=== PATIENT | female | born 1990 | race Caucasian/White ===

== ENCOUNTER 2020-09-03 23:34 | Inpatient (IN) | payer BC ==
[2020-09-03] MEDS ORDERED: Misoprostol 200 MCG Tab PO PRN (23:41)
[2020-09-03] MEDS ORDERED: Sodium Chloride 0.9% 10 ML Syringe FLUSH PRN (23:41)
[2020-09-03] MEDS ORDERED: Lidocaine 1% 50 ML MDV INJECT PRN (23:41)
[2020-09-03] MEDS ORDERED: Methylergonovine 0.2 MG/1 ML Amp IM PRN (23:41)
[2020-09-03] MEDS ORDERED: Butorphanol 1 MG/ML SDV IVPUSH PRN (23:41)
[2020-09-03] MEDS ORDERED: Sodium Chloride 0.9% 2.5 ML Syringe FLUSH PRN (23:41)
[2020-09-03] MEDS ORDERED: Ondansetron 4 MG/2 ML SDV IVPUSH PRN (23:41)
[2020-09-03] MEDS ORDERED: Water For Irrigation,Sterile 1,000 ML Container IRR PRN (23:41)
[2020-09-03] MEDS ORDERED: Tranexamic Acid 1,000 MG in Sodium Chloride 0.9% 100 ML IV PRN (23:41)
[2020-09-03] MEDS ORDERED: Carboprost Tromethamine 250 MCG/1 ML Amp IM PRN (23:41)
[2020-09-03] MEDS ORDERED: Sodium Chloride 0.9% 10 ML SDV IV PRN (23:41)
[2020-09-03] MEDS ORDERED: Oxytocin/0.9 % Sodium Chloride 30 UNIT/500 ML BAG IV SCH (23:45)
[2020-09-04] MEDS: Lactated Ringers 1,000 ML IV SCH ×3 (00:08→06:49)
[2020-09-04] MEDS ORDERED: Bupivacaine 0.25% 10 ML SDV ONE (04:01)
[2020-09-04] MEDS ORDERED: Ropivacaine HCl/PF 200 ML ONE (04:01)
--- NOTE | 2020-09-04 04:12 | PCM.LDHP ---
L&D History of Present Illness - General Date of Service: 09/04/20 Admit Problem/Dx: Patient Status Order with Admit Dx/Problem 09/03/20 23:42 Patient Status [ADT] Routine Admission Diagnosis/Problem Admission Diagnosis/Problem Planned Source of Information: Patient History Limitations: Reports: No Limitations - History of Present Illness Introduction:: 30 year old at 39w1d (EDC 09/10/2020 by LMP consistent with first trimester ultrasound) presented to labor and delivery on the evening of 09/03/2020 with spontaneous rupture of membranes and onset of labor. Stated ROM with clear fluid occurred at 2130 and her contractions started shortly thereafter. SVE upon arrival was 2-3/90/-1, vertex per nursing and she was noted to be grossly ruptured. has been complicated by chlamydial infection which was tr eated and resolved. Reports good movement. Denies vaginal bleeding. Pain Score: 6 - Related Data Allergies/Adverse Reactions: Allergies Allergy/AdvReac Type Severity Reaction Status Date / Time tioconazole Allergy Burning Verified 09/04/20 01:05 [From Monistat 1 (tioconazole)] Home Medications: Home Meds Acetaminophen [Tylenol] 650 mg PO Q4H PRN 09/04/20 [History] Doxylamine Succinate [Unisom] 1 tab PO DAILY 09/04/20 [History] Iron,Carbonyl/Ascorbic Acid [Iron 100-Vitamin C Tablet] 1 tab PO DAILY 09/04/20 [History] Magnesium Oxide/Magnesium [Magnesium] 1 cap PO DAILY 09/04/20 [History] Omeprazole Magnesium [Prilosec Otc] 1 tab PO DAILY 09/04/20 [History] Pnv No.95/Ferrous Fum/Folic AC [ Vitamin Tablet] 1 tab PO DAILY 09/04/20 [History] Past Medical History - Past Health History Medical/Surgical History: Denies 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 Respiratory: Reports: Other (See Below) Other Respiratory Family Hisory: FOB grandfather dx with pulmonary fibrosis at age 50. - Tobacco Use Tobacco Use Status *Q: Never Tobacco User Second Hand Smoke Exposure: No H&P Review of Systems - Review of Systems: Review Of Systems: See Below General: Reports: No Symptoms HEENT: Reports: No Symptoms Pulmonary: Reports: No Symptoms Cardiovascular: Reports: No Symptoms Gastrointestinal: Reports: Abdominal Pain Genitourinary: Reports: No Symptoms Musculoskeletal: Reports: Back Pain Skin: Reports: No Symptoms Psychiatric: Reports: No Symptoms Neurological: Reports: No Symptoms Hematologic/Lymphatic: Reports: No Symptoms Immunologic: Reports: No Symptoms L&D Exam - Exam Exam: See Below - Vital Signs Weight: 235 lb - OB Specific Contraction Intensity: Moderate Movement: Active Heart Tones: Present Heart Tones per Min: 150 Heart Rate (FHR) Variability: Moderate (6-25 bmp) Presentation: Vertex - Young Score Young Score Cervix Position: Midposition Young Score Consistency: Soft Young Score Effacement: >80% Young Score Dilation: 3-4 cm Young Score 's Station: -1 ,0 Young Score Total: 10 - Exam General: Alert Lungs: Normal Respiratory Effort Cardiovascular: Regular Rate GI/Abdominal Exam: Soft, Non-Tender Back Exam: Normal Inspection, Full Range of Motion Extremities: Normal Range of Motion, Non-Tender, Pedal Edema (trace) Skin: Warm, Dry, Intact Psychiatric: Normal Mood - Patient Data Lab Results Last 24 hrs: Laboratory Results - last 24 hr 09/03/20 09/03/20 09/03/20 Range/Units 23:26 23:57 23:57 WBC 7.48 (4.0-11.0) K/uL RBC 4.15 L (4.30-5.90) M/uL Hgb 12.5 (12.0-16.0) g/dL Hct 36.5 (36.0-46.0) % MCV 88.0 (80.0-98.0) fL MCH 30.1 (27.0-32.0) pg MCHC 34.2 (31.0-37.0) g/dL RDW Std Deviation 41.6 (28.0-62.0) fl RDW Coeff of Zeke 13 (11.0-15.0) % Plt Count 238 (150-400) K/uL MPV 10.00 (7.40-12.00) fL Nucleated RBC % 0.0 /100WBC Nucleated RBCs # 0 K/uL SARS-CoV-2 RNA (ANNE) NEGATIVE (NEGATIVE) Blood Type AB POSITIVE Antibody Screen NEGATIVE Result Diagrams: 09/03/20 23:57 Problem List Initiated/Reviewed/Updated: Yes Orders Last 24hrs: Active Orders 24 hr Category Date Time Status Patient Status [ADT] Routine ADT 09/03/20 23:42 Active Heart Tones [RC] CONTINUOUS Care 09/03/20 23:42 Active Non Stress Test [RC] PER UNIT ROUTINE Care 09/03/20 23:42 Active May Shower [RC] ASDIRECTED Care 09/03/20 23:42 Active Notify Provider [RC] PRN Care 09/03/20 23:42 Active Up ad Kena [RC] ASDIRECTED Care 09/03/20 23:42 Active Vaginal Exam [RC] PRN Care 09/03/20 23:42 Active Vital Signs [RC] PER UNIT ROUTINE Care 09/03/20 23:42 Active RPR (SYPHILIS SERO) W/ RFLX [REF] Routine Lab 09/03/20 23:57 Received Butorphanol [Stadol] Med 09/03/20 23:41 Active 1 mg IVPUSH Q1H PRN Carboprost Tromethamine [Hemabate DS] Med 09/03/20 23:41 Active 250 mcg IM ASDIRECTED PRN Lactated Ringers [Ringers, Lactated] 1,000 ml Med 09/03/20 23:45 Active IV ASDIRECTED Lidocaine 1% [Xylocaine 1%] Med 09/03/20 23:41 Active 50 ml INJECT ONETIME PRN Methylergonovine [Methergine] Med 09/03/20 23:41 Active 0.2 mg IM ASDIRECTED PRN Ondansetron [Zofran] Med 09/03/20 23:41 Active 4 mg IVPUSH Q6H PRN Oxytocin/0.9 % Sodium Chloride [Oxytocin 30 Unit/500 ML Med 09/03/20 23:45 Active -NS] 30 unit in 500 ml IV TITRATE Sodium Chloride 0.9% [Normal Saline] Med 09/03/20 23:41 Active 10 ml IV ASDIRECTED PRN Sodium Chloride 0.9% [Saline Flush] Med 09/03/20 23:41 Active 10 ml FLUSH ASDIRECTED PRN Sodium Chloride 0.9% [Saline Flush] Med 09/03/20 23:41 Active 2.5 ml FLUSH ASDIRECTED PRN Tranexamic Acid [Cyklokapron] 1,000 mg Med 09/03/20 23:41 Active Sodium Chloride 0.9% [Normal Saline] 100 ml IV ONETIME Water For Irrigation,Sterile [Sterile Water for Med 09/03/20 23:41 Active Irrigation] 1,000 ml IRR ASDIRECTED PRN miSOPROStoL [Cytotec] Med 09/03/20 23:41 Active 200 mcg PO ONETIME PRN Scalp Electrode [WOMSER] Per Unit Routine Oth 09/03/20 23:42 Ordered Peripheral IV Insertion Adult [OM.PC] Routine Oth 09/03/20 23:42 Ordered Resuscitation Status Routine Resus Stat 09/03/20 23:41 Ordered Medication Orders Butorphanol Tartrate (Butorphanol 1 Mg/Ml Sdv) 1 mg IVPUSH Q1H PRN PRN Reason: Pain (severe 7-10) Last Admin: 09/04/20 01:55 Dose: 1 mg Documented by: LEO Carboprost Tromethamine (Carboprost Tromethamine 250 Mcg/1 Ml Amp) 250 mcg IM A SDIRECTED PRN PRN Reason: Post Hemorrhage Oxytocin/Sodium Chloride (Oxytocin 30 Unit/500 Ml-Ns) 30 unit in 500 mls @ 500 mls/hr IV TITRATE [facility] Tranexamic Acid 1,000 mg/ (Sodium Chloride) 110 mls @ 660 mls/hr IV ONETIME PRN PRN Reason: Bleeding Lactated Ringer's (Ringers, Lactated) 1,000 mls @ 150 mls/hr IV ASDIRECTED COLLEEN Last Infusion: 09/04/20 01:15 Dose: 150 mls/hr Documented by: Admin: 09/04/20 00:08 Dose: 500 mls/hr Documented by: LEO Lidocaine HCl (Lidocaine 1% 50 Ml Mdv) 50 ml INJECT ONETIME PRN PRN Reason: Laceration repair Methylergonovine Maleate (Methylergonovine 0.2 Mg/1 Ml Amp) 0.2 mg IM ASDIRECTED PRN PRN Reason: Post Hemorrhage Misoprostol (Misoprostol 200 Mcg Tab) 200 mcg PO ONETIME PRN PRN Reason: Post Hemorrhage Ondansetron HCl (Ondansetron 4 Mg/2 Ml Sdv) 4 mg IVPUSH Q6H PRN PRN Reason: Nausea/Vomiting Sodium Chloride (Sodium Chloride 0.9% 10 Ml Syringe) 10 ml FLUSH ASDIRECTED PRN PRN Reason: Keep Vein Open Sodium Chloride (Sodium Chloride 0.9% 2.5 Ml Syringe) 2.5 ml FLUSH ASDIRECTED PRN PRN Reason: Keep Vein Open Sodium Chloride (Sodium Chloride 0.9% 10 Ml Sdv) 10 ml IV ASDIRECTED PRN PRN Reason: IV Use Sterile Water (Water For Irrigation,Sterile 1,000 Ml Container) 1,000 ml IRR ASDIRECTED PRN PRN Reason: delivery Assessment/Plan Comment:: 30 year old at 39w1d (EDC 09/10/2020 by LMP consistent with first trimester ultrasound) with spontaneous rupture of membranes * Admit to labor and delivery * Rh positive, rubella immune, GBS negative * Epidural PRN pain management * Clear liquids as tolerated Dispo: stable. Continue with expectant management of labor.
[2020-09-04] MEDS ORDERED: ePHEDrine 50 MG/ML SDV ONE (04:36)
--- NOTE | 2020-09-04 04:51 | PCM.PREANE ---
Preanesthetic Assessment - Anesthesia/Transfusion/Family Hx Anesthesia History: No Prior Anesthesia Family History of Anesthesia Reaction: No Transfusion History: No Prior Transfusion(s) - Review of Systems General: No Symptoms Pulmonary: No Symptoms Cardiovascular: No Symptoms Gastrointestinal: No Symptoms Neurological: No Symptoms Other: Reports: None - Physical Assessment Height: 5 ft 6 in Weight: 235 lb ASA Class: 2 Mental Status: Alert & Oriented x3 Airway Class: Mallampati = 3 Dentition: Reports: Normal Dentition ROM/Head Extension: Full Lungs: Clear to Auscultation, Normal Respiratory Effort Cardiovascular: Regular Rate, Regular Rhythm - Lab Values: Laboratory Last Values WBC 7.48 K/uL (4.0-11.0) 09/03/20 23:57 RBC 4.15 M/uL (4.30-5.90) L 09/03/20 23:57 Hgb 12.5 g/dL (12.0-16.0) 09/03/20 23:57 Hct 36.5 % (36.0-46.0) 09/03/20 23:57 MCV 88.0 fL (80.0-98.0) 09/03/20 23:57 MCH 30.1 pg (27.0-32.0) 09/03/20 23:57 MCHC 34.2 g/dL (31.0-37.0) 09/03/20 23:57 RDW Std Deviation 41.6 fl (28.0-62.0) 09/03/20 23:57 RDW Coeff of Zeke 13 % (11.0-15.0) 09/03/20 23:57 Plt Count 238 K/uL (150-400) 09/03/20 23:57 MPV 10.00 fL (7.40-12.00) 09/03/20 23:57 Nucleated RBC % 0.0 /100WBC 09/03/20 23:57 Nucleated RBCs # 0 K/uL 09/03/20 23:57 SARS-CoV-2 RNA (ANNE) NEGATIVE (NEGATIVE) 09/03/20 23:26 Blood Type AB POSITIVE 09/03/20 23:57 Antibody Screen NEGATIVE 09/03/20 23:57 - Allergies Allergies/Adverse Reactions: Allergies Allergy/AdvReac Type Severity Reaction Status Date / Time tioconazole Allergy Burning Verified 09/04/20 01:05 [From Monistat 1 (tioconazole)] - Blood Blood Available: Yes Product(s) Available: PRBC - Anesthesia Plan Pre-Op Medication Ordered: None - Acknowledgements Anesthesia Type Planned: Epidural Pt an Appropriate Candidate for the Planned Anesthesia: Yes Alternatives and Risks of Anesthesia Discussed w Pt/Guardian: Yes Pt/Guardian Understands and Agrees with Anesthesia Plan: Yes PreAnesthesia Questionnaire - Past Health History Medical/Surgical History: Denies 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: - Infectious Disease History Infectious Disease History: Reports: Chicken Pox - SUBSTANCE USE Tobacco Use Status *Q: Never Tobacco User Second Hand Smoke Exposure: No - HOME MEDS Home Medications: Home Meds Acetaminophen [Tylenol] 650 mg PO Q4H PRN 09/04/20 [History] Doxylamine Succinate [Unisom] 1 tab PO DAILY 09/04/20 [History] Iron,Carbonyl/Ascorbic Acid [Iron 100-Vitamin C Tablet] 1 tab PO DAILY 09/04/20 [History] Magnesium Oxide/Magnesium [Magnesium] 1 cap PO DAILY 09/04/20 [History] Omeprazole Magnesium [Prilosec Otc] 1 tab PO DAILY 09/04/20 [History] Pnv No.95/Ferrous Fum/Folic AC [ Vitamin Tablet] 1 tab PO DAILY 09/04/20 [History] - CURRENT (IN HOUSE) MEDS Current Meds: Current Medications Butorphanol Tartrate (Butorphanol 1 Mg/Ml Sdv) 1 mg IVPUSH Q1H PRN PRN Reason: Pain (severe 7-10) Last Admin: 09/04/20 01:55 Dose: 1 mg Documented by: Carboprost Tromethamine (Carboprost Tromethamine 250 Mcg/1 Ml Amp) 250 mcg IM ASDIRECTED PRN PRN Reason: Post Hemorrhage Oxytocin/Sodium Chloride (Oxytocin 30 Unit/500 Ml-Ns) 30 unit in 500 mls @ 500 mls/hr IV TITRATE COLLEEN Tranexamic Acid 1,000 mg/ (Sodium Chloride) 110 mls @ 660 mls/hr IV ONETIME PRN PRN Reason: Bleeding Lactated Ringer's (Ringers, Lactated) 1,000 mls @ 150 mls/hr IV ASDIRECTED COLLEEN Last Admin: 09/04/20 04:22 Dose: 999 mls/hr Documented by: Lidocaine HCl (Lidocaine 1% 50 Ml Mdv) 50 ml INJECT ONETIME PRN PRN Reason: Laceration repair Methylergonovine Maleate (Methylergonovine 0.2 Mg/1 Ml Amp) 0.2 mg IM ASDIRECTED PRN PRN Reason: Post Hemorrhage Misoprostol (Misoprostol 200 Mcg Tab) 200 mcg PO ONETIME PRN PRN Reason: Post Hemorrhage Ondansetron HCl (Ondansetron 4 Mg/2 Ml Sdv) 4 mg IVPUSH Q6H PRN PRN Reason: Nausea/Vomiting Sodium Chloride (Sodium Chloride 0.9% 10 Ml Syringe) 10 ml FLUSH ASDIRECTED PRN PRN Reason: Keep Vein Open Sodium Chloride (Sodium Chloride 0.9% 2.5 Ml Syringe) 2.5 ml FLUSH ASDIRECTED PRN PRN Reason: Keep Vein Open Sodium Chloride (Sodium Chloride 0.9% 10 Ml Sdv) 10 ml IV ASDIRECTED PRN PRN Reason: IV Use Sterile Water (Water For Irrigation,Sterile 1,000 Ml Container) 1,000 ml IRR ASDIRECTED PRN PRN Reason: delivery Discontinued Medications Bupivacaine HCl (Bupivacaine 0.25% 10 Ml Sdv) Confirm Administered Dose 10 ml .ROUTE .STK-MED ONE Stop: 09/04/20 04:02 Ephedrine Sulfate (Ephedrine 50 Mg/Ml Sdv) Confirm Administered Dose 50 mg .ROUTE .STK-MED ONE Stop: 09/04/20 04:37 Ropivacaine (Naropin 0.2%) Confirm Administered Dose 200 mls @ as directed .ROUTE .STK-MED ONE Stop: 09/04/20 04:02 - Pre-Procedure Checklist Attending Provider Aware: Yes Chart Reviewed: Yes Consent Signed: Yes Labs Reviewed: Yes VS/FHR Reviewed: Yes Patient Identification Confirmation Method: Reports: Verbal Patient Pt an Appropriate Candidate for the Planned Anesthesia: Yes Alternatives and Risks of Anesthesia Discussed w Pt/Guardian: Yes - Procedure Procedure Start Date: 09/04/20 Procedure Start Time: 04:[address]: Reports: Blood Pressure, Heart Rate, SPO2 Functional IV: Yes Safety Measures: Reports: Patient Identified, Procedure Verified, Site Verified, Procedure Time Out Patient Position: Reports: Sitting Prep: Reports: Betadine x3, Sterile Drape Local Anesthetic: Reports: Intradermal Wheal w Lidocaine 1% Regional Placement Level: Reports: L3-4 Needle: Reports: 17 g Touhy Approach: Reports: Midline Technique: Reports: CATRINA Plastic Syringe Parasthesia: Reports: None Fluid Obtained: Reports: None Test Dose Time: 04:12 Test Dose Medication: Reports: Lidocaine 1.5% w Epinephrine 1:200,000 Test Dose Response: Reports: Negative Loading Dose Time: 04:10 Loading Dose Medication: bupivicaine 0.25% 10 cc Loading Dose Patient Position: sitting Continuous Infusion Start Time: 04:15 Continuous Infusion Medication: ropivicaine 0.2% Continuous Infusion Rate: 16 Continuous Infusion PCS Bolus Option: 4 Continuous Infusion Lockout Dose (cc/hr): 20 Patient Position Post Placement: Reports: Supline/VINITA VS and FHR Monitored in Unit Post Placement: Yes Procedure End Date: 09/04/20 Procedure End Time: 05:06
[2020-09-04] MEDS ORDERED: Benzocaine/Menthol 20%-0.5% Spray 78 GM Cannister TOP PRN (10:53)
[2020-09-04] MEDS ORDERED: Acetaminophen 500 MG Tab PO PRN (10:53)
[2020-09-04] MEDS ORDERED: Ibuprofen 400 MG Tab PO PRN (10:53)
[2020-09-04] MEDS ORDERED: Docusate Sodium 100 MG Cap PO PRN (10:53)
[2020-09-04] MEDS ORDERED: Lanolin 100% Cream 7 GM Tube TOP PRN (10:53)
[2020-09-04] MEDS ORDERED: Bisacodyl 10 MG Supp RECTAL PRN (10:53)
[2020-09-04] MEDS ORDERED: oxyCODONE 5 MG Tab PO PRN (10:53)
[2020-09-04] MEDS ORDERED: Witch Hazel Medicated Pads 40/Jar TOP PRN (10:53)
--- NOTE | 2020-09-04 11:00 | PCM.DEL ---
L & D Note - General Info Date of Service: 09/04/20 - Delivery Note Labor: Spontaneous Delivery Outcome: Livebirth Delivery Method: Spontaneous Vaginal Delivery-Single Presentation: Right Occiput Anterior (GABRIEL) Nuchal Cord: Present Anesthesia Type: Epidural Anesthetic: Lidocaine (Xylocaine) 1% Plain Local Anesthetic Volume: Other (15cc) Amniotic Fluid Description: Clear Episiotomy Type: None Laceration: 2nd Degree Suture type: Vicryl Suture size: 3-0 Placenta: Spontaneous Cord: 3 Vessels Estimated Blood Loss: 300 Resuscitation Needed: No : Bulb Syringe Provider: Edwin Pleitez Score 1 min: 8 Score 5 min: 9 Second Stage Interventions: Reports: Pushing Effectively - General Info Date of Service: 09/04/20 - Patient Data Weight - Most Recent: 235 lb I&O - Last 24 Hours: Intake & Output 09/03/20 09/04/20 09/04/20 22:59 06:59 14:59 Intake Total 1999 Balance 1999 Lab Results Last 24 Hours: Laboratory Results - last 24 hr 09/03/20 09/03/20 09/03/20 Range/Units 23:26 23:57 23:57 WBC 7.48 (4.0-11.0) K/uL RBC 4.15 L (4.30-5.90) M/uL Hgb 12.5 (12.0-16.0) g/dL Hct 36.5 (36.0-46.0) % MCV 88.0 (80.0-98.0) fL MCH 30.1 (27.0-32.0) pg MCHC 34.2 (31.0-37.0) g/dL RDW Std Deviation 41.6 (28.0-62.0) fl RDW Coeff of Zeke 13 (11.0-15.0) % Plt Count 238 (150-400) K/uL MPV 10.00 (7.40-12.00) fL Nucleated RBC % 0.0 /100WBC Nucleated RBCs # 0 K/uL SARS-CoV-2 RNA (ANNE) NEGATIVE (NEGATIVE) Blood Type AB POSITIVE Antibody Screen NEGATIVE Med Orders - Current: Current Medications Butorphanol Tartrate (Butorphanol 1 Mg/Ml Sdv) 1 mg IVPUSH Q1H PRN PRN Reason: Pain (severe 7-10) Last Admin: 09/04/20 01:55 Dose: 1 mg Documented by: Carboprost Tromethamine (Carboprost Tromethamine 250 Mcg/1 Ml Amp) 250 mcg IM ASDIRECTED PRN PRN Reason: Post Hemorrhage Oxytocin/Sodium Chloride (Oxytocin 30 Unit/500 Ml-Ns) 30 unit in 500 mls @ 500 mls/hr IV TITRATE [facility] Last Admin: 09/04/20 10:30 Dose: 500 mls/hr Documented by: Tranexamic Acid 1,000 mg/ (Sodium Chloride) 110 mls @ 660 mls/hr IV ONETIME PRN PRN Reason: Bleeding Lactated Ringer's (Ringers, Lactated) 1,000 mls @ 150 mls/hr IV ASDIRECTED [facility] Last Admin: 09/04/20 06:49 Dose: 150 mls/hr Documented by: Lidocaine HCl (Lidocaine 1% 50 Ml Mdv) 50 ml INJECT ONETIME PRN PRN Reason: Laceration repair Last Admin: 09/04/20 10:30 Dose: 50 ml Documented by: Methylergonovine Maleate (Methylergonovine 0.2 Mg/1 Ml Amp) 0.2 mg IM ASDIRECTED PRN PRN Reason: Post Hemorrhage Misoprostol (Misoprostol 200 Mcg Tab) 200 mcg PO ONETIME PRN PRN Reason: Post Hemorrhage Ondansetron HCl (Ondansetron 4 Mg/2 Ml Sdv) 4 mg IVPUSH Q6H PRN PRN Reason: Nausea/Vomiting Sodium Chloride (Sodium Chloride 0.9% 10 Ml Syringe) 10 ml FLUSH ASDIRECTED PRN PRN Reason: Keep Vein Open Sodium Chloride (Sodium Chloride 0.9% 2.5 Ml Syringe) 2.5 ml FLUSH ASDIRECTED PRN PRN Reason: Keep Vein Open Sodium Chloride (Sodium Chloride 0.9% 10 Ml Sdv) 10 ml IV ASDIRECTED PRN PRN Reason: IV Use Sterile Water (Water For Irrigation,Sterile 1,000 Ml Container) 1,000 ml IRR ASDIRECTED PRN PRN Reason: delivery Discontinued Medications Bupivacaine HCl (Bupivacaine 0.25% 10 Ml Sdv) Confirm Administered Dose 10 ml .ROUTE .ST-MED ONE Stop: 09/04/20 04:02 Ephedrine Sulfate (Ephedrine 50 Mg/Ml Sdv) Confirm Administered Dose 50 mg .ROUTE .STK-MED ONE Stop: 09/04/20 04:37 Ropivacaine (Naropin 0.2%) Confirm Administered Dose 200 mls @ as directed .ROUTE .STK-MED ONE Stop: 09/04/20 04:02 - Exam Urinary Catheter Total Time: 0Days 0Hours - Problem List Review Problem List Initiated/Reviewed/Updated: Yes - Assessment Assessment:: 30 year old day 0 s/p . - Plan Plan:: Routine care
[2020-09-04] MEDS: Ibuprofen 800 MG Tab PO PRN ×2 (11:53→19:35)
--- NOTE | 2020-09-04 14:42 | OR ---
SURGEON: Edwin Pleitez MD DATE OF PROCEDURE: 09/04/2020 INDICATION FOR PROCEDURE: A 30-year-old, G1, P0, at 39 weeks and 1 day, presenting with spontaneous rupture of membranes in labor. The patient noticed a gush of fluid last night around 11:30 p.m., then started having contractions on her own. After she arrived to Labor and Delivery, she was confirmed to be ruptured and cervix was 2-3cm/ 90%/-1. She is GBS negative. She had otherwise uncomplicated . The baby is category 1 tracing. She continued to make cervical change on her own. She received an epidural with good pain control. She progressed to fully dilated with the urge to push. PREOPERATIVE DIAGNOSIS: 1. Schmitz intrauterine at 39 weeks and 1 day. 2. Active labor POSTOPERATIVE DIAGNOSIS: 1. Schmitz intrauterine at 39 weeks and 1 day. 2. Active labor PROCEDURE PERFORMED: Normal spontaneous vaginal delivery, repair of second-degree laceration. Geodetic Survey Director: Arely Pineda MS4 ANESTHESIOLOGIST: Dr. Jason Menjivar. ANESTHESIA: Epidural. FINDINGS: Viable female . scores of 8 and 9. weight of 7lb 3oz. Nuchal cord x1 was noted and reduced after delivery. ESTIMATED BLOOD LOSS: 200 mL. DESCRIPTION OF PROCEDURE: The patient pushed with contractions for about 30 minutes with good descent. head delivered in occiput anterior position over intact perineum, restituted ROT. Nuchal cord was noted. Anterior shoulder delivered easily followed by posterior shoulder and remaining body. Nuchal cord was reduced after delivery. The baby was placed on maternal chest and evaluated by awaiting nursery staff. The baby was pink, crying, and moving all extremities immediately after delivery. The umbilical cord was clamped and cut after 3 minutes, and umbilical cord gases were obtained. The placenta was removed with gentle traction on the umbilical cord and fundal massage. It was examined to be intact with 3-vessel cord. The perineum was examined. She had a second-degree laceration. 15 mL of 1% lidocaine was injected for anesthesia. The laceration was repaired with 3-0 Vicryl in usual fashion. Hemostasis was confirmed after the repair. Fundal massage was performed and the bleeding was light. The patient tolerated the procedure well and was given care instructions. GIANNI / CHRISTINA /[id number] MTDMaria Fernanda
[2020-09-04] MEDS: Acetaminophen 500 MG Tab PO PRN (15:26)
[2020-09-05] MEDS: Acetaminophen 500 MG Tab PO PRN (00:50)
[2020-09-05] MEDS: Ibuprofen 800 MG Tab PO PRN (06:09)
--- NOTE | 2020-09-05 08:50 | PCM.PNPP ---
- General Info Date of Service: 09/05/20 Functional Status: Reports: Pain Controlled, Tolerating Diet, Ambulating, Urinating - Review of Systems General: Reports: No Symptoms HEENT: Reports: No Symptoms Pulmonary: Reports: No Symptoms Cardiovascular: Reports: No Symptoms Gastrointestinal: Reports: No Symptoms Genitourinary: Reports: No Symptoms Musculoskeletal: Reports: No Symptoms Skin: Reports: No Symptoms Neurological: Reports: No Symptoms Psychiatric: Reports: No Symptoms - General Info Date of Service: 09/05/20 - Patient Data Vital Signs - Most Recent: Last Vital Signs Temp 98.5 F 09/04/20 19:00 Pulse 110 H 09/04/20 19:00 Resp 18 09/04/20 19:00 BP 124/71 09/04/20 19:00 Pulse Ox 96 09/04/20 19:00 Weight - Most Recent: 235 lb Lab Results - Last 24 Hours: Laboratory Results - last 24 hr 09/05/20 Range/Units 06:29 Hgb 11.5 L (12.0-16.0) g/dL Hct 33.5 L (36.0-46.0) % Med Orders - Current: Current Medications Acetaminophen (Acetaminophen 500 Mg Tab) 500 mg PO Q4H PRN PRN Reason: Pain (mild 1-3) Acetaminophen (Acetaminophen 500 Mg Tab) 1,000 mg PO Q4H PRN PRN Reason: Pain (mild 1-3) Last Admin: 09/05/20 00:50 Dose: 1,000 mg Documented by: Benzocaine/Menthol (Benzocaine/Menthol 20%-0.5% [place] 78 Gm Cannister) 78 gm TOP ASDIRECTED PRN PRN Reason: Perineal Comfort Measure Bisacodyl (Bisacodyl 10 Mg Supp) 10 mg RECTAL ONETIME PRN PRN Reason: Constipation Butorphanol Tartrate (Butorphanol 1 Mg/Ml Sdv) 1 mg IVPUSH Q1H PRN PRN Reason: Pain (severe 7-10) Last Admin: 09/04/20 01:55 Dose: 1 mg Documented by: Carboprost Tromethamine (Carboprost Tromethamine 250 Mcg/1 Ml Amp) 250 mcg IM ASDIRECTED PRN PRN Reason: Post Hemorrhage Docusate Sodium (Docusate Sodium 100 Mg Cap) 100 mg PO Q12H PRN PRN Reason: Constipation Last Admin: 09/04/20 15:26 Dose: 100 mg Documented by: Emollient Ointment (Lanolin 100% Cream 7 Gm Tube) 0 gm TOP ASDIRECTED PRN PRN Reason: Sore Nipples Last Admin: 09/04/20 15:26 Dose: 1 tube Documented by: Oxytocin/Sodium Chloride (Oxytocin 30 Unit/500 Ml-Ns) 30 unit in 500 mls @ 500 mls/hr IV TITRATE [facility] Last Admin: 09/04/20 10:30 Dose: 500 mls/hr Documented by: Tranexamic Acid 1,000 mg/ (Sodium Chloride) 110 mls @ 660 mls/hr IV ONETIME PRN PRN Reason: Bleeding Lactated Ringer's (Ringers, Lactated) 1,000 mls @ 150 mls/hr IV ASDIRECTED [facility] Last Admin: 09/04/20 06:49 Dose: 150 mls/hr Documented by: Ibuprofen (Ibuprofen 400 Mg Tab) 400 mg PO Q4H PRN PRN Reason: Pain (mild 1-3) Ibuprofen (Ibuprofen 800 Mg Tab) 800 mg PO Q6H PRN PRN Reason: Pain (mild 1-3) Last Admin: 09/05/20 06:09 Dose: 800 mg Documented by: Lidocaine HCl (Lidocaine 1% 50 Ml Mdv) 50 ml INJECT ONETIME PRN PRN Reason: Laceration repair Last Admin: 09/04/20 10:30 Dose: 50 ml Documented by: Methylergonovine Maleate (Methylergonovine 0.2 Mg/1 Ml Amp) 0.2 mg IM ASDIRECTED PRN PRN Reason: Post Hemorrhage Misoprostol (Misoprostol 200 Mcg Tab) 200 mcg PO ONETIME PRN PRN Reason: Post Hemorrhage Ondansetron HCl (Ondansetron 4 Mg/2 Ml Sdv) 4 mg IVPUSH Q6H PRN PRN Reason: Nausea/Vomiting Oxycodone HCl (Oxycodone 5 Mg Tab) 5 mg PO Q2H PRN PRN Reason: Pain (severe 7-10) Sodium Chloride (Sodium Chloride 0.9% 10 Ml Syringe) 10 ml FLUSH ASDIRECTED PRN PRN Reason: Keep Vein Open Sodium Chloride (Sodium Chloride 0.9% 2.5 Ml Syringe) 2.5 ml FLUSH ASDIRECTED PRN PRN Reason: Keep Vein Open Sodium Chloride (Sodium Chloride 0.9% 10 Ml Sdv) 10 ml IV ASDIRECTED PRN PRN Reason: IV Use Sterile Water (Water For Irrigation,Sterile 1,000 Ml Container) 1,000 ml IRR ASDIRECTED PRN PRN Reason: delivery Witch Shira (Witch Shira Medicated Pads 40/Jar) 1 pad TOP ASDIRECTED PRN PRN Reason: comfort care Discontinued Medications Bupivacaine HCl (Bupivacaine 0.25% 10 Ml Sdv) Confirm Administered Dose 10 ml .ROUTE .STK-MED ONE Stop: 09/04/20 04:02 Last Admin: 09/04/20 23:12 Dose: Not Given Documented by: Ephedrine Sulfate (Ephedrine 50 Mg/Ml Sdv) Confirm Administered Dose 50 mg .ROUTE .STK-MED ONE Stop: 09/04/20 04:37 Ropivacaine (Naropin 0.2%) Confirm Administered Dose 200 mls @ as directed .ROUTE .ST[place]-MED ONE Stop: 09/04/20 04:02 Last Admin: 09/04/20 23:12 Dose: Not Given Documented by: - Infant Interaction Infant Disposition, : at Bedside Interaction: Holding Infant Feeding: Breastfed Infant; Nursed Well Support Person: - Recovery Exam Fundal Tone: Firm Fundal Level: 2 Fingerbreadths Below Umbilicus Fundal Placement: Midline Lochia Amount: Scant Lochia Color: Rubra/Red Perineum Description: Other (see below) Other Perinuem Description: 2nd degree laceration Episiotomy/Laceration: Approximated Bladder Status: Voiding - Exam General: Alert, Oriented, Cooperative, No Acute Distress HEENT: Pupils Equal, Pupils Reactive Neck: Supple, Trachea Midline Lungs: Normal Respiratory Effort GI/Abdominal Exam: Soft, No Distention Extremities: Normal Inspection Skin: Warm, Dry, Intact Wound/Incisions: Healing Well Neurological: No New Focal Deficit Psy/Mental Status: Alert, Normal Affect, Normal Mood - Problem List Review Problem List Initiated/Reviewed/Updated: Yes - Assessment Assessment:: 30 year old day 1 s/p . Stable and recovering well. - Plan Plan:: Routine care. Plan for discharge today. * Ambulating well * * Light bleeding present, continue to monitor * Hemoglobin level 11.5 this morning * Continue to take vitamin and iron supplement * Follow up appointment in 4 weeks * Refer to discharge instructions with any further questions
== END 2020-09-05 13:37 | disposition home or self-care (01) | DRG 560 ==
LOC: MW.OBCHECK 23:34 → MW.OB 23:34 → MW.OBCHECK 23:42 → OBSVTOIN 09-04 10:53 → MW.OB 09-04 14:39
PROVIDERS: ADMIT Obstetrics & Gynecology; ATTEND Obstetrics & Gynecology
PROC: 10E0XZZ Delivery of Products of Conception, External Approach (ICD-10-PCS; principal; 2020-09-04)
PROC: 0KQM0ZZ Repair Perineum Muscle, Open Approach (ICD-10-PCS; 2020-09-04)
PROC: 3E0R3BZ Introduction of Anesthetic Agent into Spinal Canal, Percutaneous Approach (ICD-10-PCS; 2020-09-04)
PROC: 00HU33Z Insertion of Infusion Device into Spinal Canal, Percutaneous Approach (ICD-10-PCS; 2020-09-04)
DX: O69.81X0 Labor and delivery complicated by cord around neck, without compression, not applicable or unspecified (principal); O70.1 Second degree perineal laceration during delivery; Z37.0 Single live birth; Z3A.39 39 weeks gestation of pregnancy; Z20.822 Contact with and (suspected) exposure to COVID-19
CPT/HCPCS: 01967; 36415; 51702; 59020; 59025; 59409; 85014; 85018; 85027; 86592; 86850; 86900; 86901; A9270-GY; J0595; J2001; J2590; J2795; J3490; J7120; U0002

== ENCOUNTER 2023-10-22 07:05 | Inpatient (IN) | payer MEDICAID ==
[2023-10-22] MEDS ORDERED: Sodium Chloride 0.9% 20 ML SDV IV PRN (07:57)
[2023-10-22] MEDS ORDERED: Terbutaline 1 MG/ML SDV SUBCUT PRN (07:57)
[2023-10-22] MEDS ORDERED: Sodium Chloride 0.9% 2.5 ML Syringe FLUSH PRN (07:57)
[2023-10-22] MEDS ORDERED: Ondansetron 4 MG/2 ML SDV IVPUSH PRN (07:57)
[2023-10-22] MEDS ORDERED: Lidocaine 1% 50 ML MDV INJECT PRN (07:57)
[2023-10-22] MEDS ORDERED: Carboprost Tromethamine 250 MCG/1 mL Vial IM PRN (07:57)
[2023-10-22] MEDS ORDERED: Tranexamic Acid IN NACL,ISO-OS 1,000 MG in Premix Bag 1 BAG IV PRN (07:57)
[2023-10-22] MEDS ORDERED: Butorphanol 2 MG/ML SDV IVPUSH PRN (07:57)
[2023-10-22] MEDS ORDERED: Water For Irrigation,Sterile 1,000 ML Container IRR PRN (07:57)
[2023-10-22] MEDS ORDERED: Methylergonovine 0.2 MG/1 ML Amp IM PRN (07:57)
[2023-10-22] MEDS ORDERED: Misoprostol 200 MCG Tab PO PRN (07:57)
[2023-10-22] MEDS ORDERED: Sodium Chloride 0.9% 10 ML Syringe FLUSH PRN (07:57)
[2023-10-22] MEDS ORDERED: Oxytocin/0.9 % Sodium Chloride 30 UNIT/500 ML BAG IV SCH (08:00)
[2023-10-22] MEDS: Oxytocin/0.9 % Sodium Chloride 30 UNIT/500 ML BAG IV SCH (08:24)
[2023-10-22] MEDS: Lactated Ringers 1,000 ML IV SCH (08:24)
[2023-10-22 08:47] LABS: HEMOGLOBIN 11.5 g/dL (12.0-16.0); MEAN CORPUSCULAR HEMOGLOBIN 28.8 pg (28.0-32.0); MEAN CORPUSCULAR HGB CONC 33.8 g/dL (32.0-36.0); MEAN CORPUSCULAR VOLUME 85.2 fL (83.0-99.0); MEAN PLATELET VOLUME 9.6 fL (9.4-12.3); PLATELET COUNT,PLT 265 K/uL (150-400); RED BLOOD CELL COUNT 3.99 M/uL (4.10-5.30)
[2023-10-22] MEDS ORDERED: Ropivacaine HCl/PF 200 ML ONE (15:30)
[2023-10-22] MEDS ORDERED: Phenylephrine HCl In 0.9% NaCl 1 MG/10 ML Syringe ONE (15:30)
[2023-10-22] MEDS ORDERED: Bupivacaine 0.5% 10 ML SDV ONE (15:30)
[2023-10-22] MEDS: Ropivacaine HCl/PF 400 MG in Premix Bag 1 BAG EPIDUR SCH (16:00)
[2023-10-22] MEDS ORDERED: Phenylephrine HCl In 0.9% NaCl 1 MG/10 ML Syringe IVPUSH PRN (16:12)
[2023-10-22] MEDS ORDERED: ePHEDrine 50 MG/ML SDV IVPUSH PRN (16:12)
[2023-10-22] MEDS ORDERED: ePHEDrine 50 MG/ML SDV IM PRN (16:13)
[2023-10-22] MEDS ORDERED: Bupivacaine 0.5% 10 ML SDV INJECT ONE (16:13)
[2023-10-22] MEDS ORDERED: dexmedeTOMIDine HCl 200 MCG/2 ML SDV EPIDUR SCH (16:15)
[2023-10-22] MEDS ORDERED: Sennosides 8.6 MG Tab PO PRN (20:00)
[2023-10-22] MEDS ORDERED: Aluminum Hydroxide/Magnesium Hydroxide/Simethicone Susp 30 ML Cup PO PRN (20:00)
[2023-10-22 20:35] LABS: PH,UMBILICAL ARTERIAL 7.304 (7.18-7.38); PH,UMBILICAL VENOUS 7.342 (7.25-7.45)
[2023-10-22] MEDS: Ibuprofen 800 MG Tab PO PRN (22:33)
[2023-10-22] MEDS: Benzocaine/Menthol 20%-0.5% Spray 78 GM Cannister TOP PRN (22:34)
[2023-10-22] MEDS: Witch Hazel Medicated Pads 40/Jar TOP PRN (22:35)
[2023-10-23] MEDS: Acetaminophen 500 MG Tab PO PRN (01:36)
[2023-10-23] MEDS: Famotidine 20 MG Tab PO PRN (01:36)
[2023-10-23 05:32] LABS: BASOPHILS ABSOLUTE AUTO 0.05 K/uL (0.00-0.20); BASOPHILS PERCENT AUTO 0.6 % (0.0-1.0); EOSINOPHILS ABSOLUTE AUTO 0.06 K/uL (0.00-0.45); EOSINOPHILS PERCENT AUTO 0.7 % (0.0-6.0); HEMATOCRIT 33.7 % (37.0-47.0); HEMOGLOBIN 11.2 g/dL (12.0-16.0); IMMATURE GRAN ABSOLUTE AUTO 0.03 K/uL (0.00-0.05); IMMATURE GRAN PERCENT AUTO 0.4 % (0.0-0.4); LYMPHOCYTES ABSOLUTE AUTO 1.43 K/uL (1.00-4.80); LYMPHOCYTES PERCENT AUTO 16.9 % (24.0-44.0); MEAN CORPUSCULAR HEMOGLOBIN 28.4 pg (28.0-32.0); MEAN CORPUSCULAR HGB CONC 33.2 g/dL (32.0-36.0); MEAN CORPUSCULAR VOLUME 85.5 fL (83.0-99.0); MEAN PLATELET VOLUME 9.7 fL (9.4-12.3); MONOCYTES ABSOLUTE AUTO 0.65 K/uL (0.00-0.80); MONOCYTES PERCENT AUTO 7.7 % (0.0-8.0); NEUTROPHILS ABSOLUTE AUTO 6.23 K/uL (1.80-7.70); NEUTROPHILS PERCENT AUTO 73.7 % (41.0-71.0); PLATELET COUNT,PLT 244 K/uL (150-400); RED BLOOD CELL COUNT 3.94 M/uL (4.10-5.30); WHITE BLOOD CELL COUNT,WBC 8.45 K/uL (3.9-11.3)
[2023-10-23] MEDS: Docusate Sodium 100 MG Cap PO PRN (07:33)
== END 2023-10-24 12:07 | disposition home or self-care (01) | DRG 807 ==
LOC: MW.OB 07:05 → OBSVTOIN 19:09 → MW.OB 23:31
PROVIDERS: ADMIT Obstetrics & Gynecology; ATTEND Obstetrics & Gynecology
PROC: 10E0XZZ Delivery of Products of Conception, External Approach (ICD-10-PCS; principal; 2023-10-22)
PROC: 3E033VJ Introduction of Other Hormone into Peripheral Vein, Percutaneous Approach (ICD-10-PCS; 2023-10-22)
PROC: 0HQ9XZZ Repair Perineum Skin, External Approach (ICD-10-PCS; 2023-10-22)
PROC: 3E0R3BZ Introduction of Anesthetic Agent into Spinal Canal, Percutaneous Approach (ICD-10-PCS; 2023-10-22)
PROC: 00HU33Z Insertion of Infusion Device into Spinal Canal, Percutaneous Approach (ICD-10-PCS; 2023-10-22)
PROC: 10907ZC Drainage of Amniotic Fluid, Therapeutic from Products of Conception, Via Natural or Artificial Opening (ICD-10-PCS; 2023-10-22)
DX: O99.214 Obesity complicating childbirth (principal); Z37.0 Single live birth; O99.344 Other mental disorders complicating childbirth; O70.1 Second degree perineal laceration during delivery; F41.9 Anxiety disorder, unspecified; O99.892 Other specified diseases and conditions complicating childbirth; E66.01 Morbid (severe) obesity due to excess calories; O99.02 Anemia complicating childbirth; Z3A.39 39 weeks gestation of pregnancy
CPT/HCPCS: 36415; 51702; 59025; 59300; 59409; 82803; 85025; 85027; 86592; 86850; 86900; 86901; A9270-GY; J0665; J2371; J2590; J2795; J7120